=== PATIENT | male | born 1950 | race African-American/Black ===

== ENCOUNTER 2019-07-08 07:58 | Observation (INO) ==
[2019-07-08] MEDS ORDERED: SODIUM CHLORIDE 0.9% 1,000 ML IV STA ×2 (08:40→09:06)
[2019-07-08 08:58] LABS: Alanine Aminotransferase 36 U/L (16-61); Albumin 3.7 G/DL (3.4-5.0); Alkaline Phosphatase 79 U/L (45-117); Aspartate Amino Transferase 43 U/L (0-37); Blood Urea Nitrogen 22 MG/DL (7-18); Calcium 8.3 MG/DL (8.5-10.1); Estimated Glom Filtration Rate 86 ML/MIN; Glucose 96 MG/DL (74-106); Osmolality,Calculated 290.7 MOS/KG (273-304); Total Protein 6.7 G/DL (6.4-8.3)
[2019-07-08 09:16] LABS: INR 0.9; PT Patient Result 10.2 SECS (9.6-12.2); Partial Thromboplastin Time 24.3 SECS (20.8-36.0)
[2019-07-08 09:22] LABS: Basophils % 0.3 % (0.0-0.8); Hematocrit 44.3 VOL% (42.0-52.0); Hemoglobin 14.8 GM/DL (14.0-18.0); Immature Granulocytes % 0.4 %; Immature Granulocytes Absolute 0.03 #; Lymphocytes # 0.3 10*3/uL (1.4-4.0); Lymphocytes % 3.7 % (21.2-54.2); Mean Corpuscular HGB Conc 33.4 GM/DL (32-36); Mean Corpuscular Volume 94.7 FL (87-102); Mean Platelet Volume 10.6 FL (9.6-12.0); Monocytes % 3.5 % (1.7-12.7); Neutrophils % 92.1 % (38.7-73.9); Platelet Count 179 T/CUMM (130-400); Red Blood Count 4.68 MC/CUMM (3.8-5.5); Red Cell Distribution Width 13.3 % (9.3-17.3); White Blood Count 7.5 T/CUMM (4-12)
[2019-07-08 09:34] LABS: Lymphocytes 5 % (20-55); Platelet Estimate Adequate; Segmented Neutrophils 87 % (50-85); Total Cells Counted 100
[2019-07-08] MEDS ORDERED: ALBUTEROL/IPRATROPIUM 3 ML NEB RESP TX PRN (09:34)
[2019-07-08] MEDS ORDERED: MORPHINE 4 MG/1 ML VIAL IV PRN ×2 (09:34)
[2019-07-08] MEDS ORDERED: ONDANSETRON 4 MG/2 ML VIAL IV PRN (09:34)
[2019-07-08] MEDS ORDERED: ACETAMINOPHEN 325 MG TABLET PO PRN (09:34)
[2019-07-08 09:35] LABS: Hypochromasia 1+
[2019-07-08] MEDS ORDERED: PIPERACILLIN/TAZOBACTAM 3,375 MG in SODIUM CHLORIDE 0.9% 100 ML IV STA (09:36)
[2019-07-08] MEDS ORDERED: LACTATED RINGERS 1,000 ML IV SCH (10:00)
[2019-07-08] MEDS: LACTATED RINGERS 1,000 ML IV SCH ×2 (12:17→18:53)
[2019-07-08] MEDS: cefOXitin 2,000 MG in SYRINGE 1 EACH IV SCH ×2 (14:33→17:41)
[2019-07-08] MEDS ORDERED: ALBUTEROL 2.5 MG/3 ML NEB RESP TX PRN (15:00)
[2019-07-08] MEDS: LATANOPROST 0.005% OPH SOLN 2.5 ML BOTTLE BOTH EYES SCH (20:40)
[2019-07-08] MEDS: BRIMONIDINE 0.15% OPH SOLN 1 DROP/DROPS BOTTLE BOTH EYES SCH (20:40)
[2019-07-08] MEDS ORDERED: METOPROLOL TARTRATE 50 MG TABLET PO SCH (21:00)
[2019-07-08 22:59] LABS: Apearance,Urine CLEAR (Clear); Bilirubin,Urine Negative (Negative); Blood, Urine Negative (Negative); Glucose,Urine (UA) Negative (Negative); Hyaline Casts,Urine 1 /LPF (0-3); Ketones,Urine 5 mg/dL (Negative); Mucus,Urine Occasional /LPF (Occasional); Nitrite,Urine Negative (Negative); Protein,Urine Negative; RBC,Urine 3 /HPF (0-4); Squamous Epithelial Cell,Urine Occasional /HPF (0-10); Urine Color Yellow (Yellow); Urine Specific Gravity 1.025 (1.001-1.035); Urine Urobilinogen < 2.0 EU/DL (0.2-1.0); WBC,Urine 9 /HPF (0-6)
[2019-07-09] MEDS: cefOXitin 2,000 MG in SYRINGE 1 EACH IV SCH ×4 (00:25→18:10)
[2019-07-09] MEDS: LACTATED RINGERS 1,000 ML IV SCH ×4 (01:37→10:47)
[2019-07-09 04:58] LABS: Calcium 7.5 MG/DL (8.5-10.1); Osmolality,Calculated 285.7 MOS/KG (273-304)
[2019-07-09 05:04] LABS: Basophils % 0.5 % (0.0-0.8); Eosinophils % 0.6 % (0.00-10.9); Hematocrit 36.6 VOL% (42.0-52.0); Immature Granulocytes % 0.3 %; Immature Granulocytes Absolute 0.02 #; Lymphocytes # 1.1 10*3/uL (1.4-4.0); Mean Corpuscular HGB Conc 33.9 GM/DL (32-36); Mean Corpuscular Volume 92.9 FL (87-102); Mean Platelet Volume 10.9 FL (9.6-12.0); Monocytes % 9.7 % (1.7-12.7); Neutrophils % 70.9 % (38.7-73.9); Red Blood Count 3.94 MC/CUMM (3.8-5.5); Red Cell Distribution Width 13.3 % (9.3-17.3); White Blood Count 6.3 T/CUMM (4-12)
[2019-07-09 05:06] LABS: Hemoglobin 12.4 GM/DL (14.0-18.0); Platelet Count 136 T/CUMM (130-400)
[2019-07-09] MEDS ORDERED: MAGNESIUM SULF RIDER 4 GM in PREMIX 1 EACH IV PRN (06:25)
[2019-07-09] MEDS ORDERED: MAGNESIUM SULF RIDER 50 ML IV ONE (06:32)
[2019-07-09] MEDS: MAGNESIUM SULF RIDER 2 GM in PREMIX 1 EACH IV PRN (06:50)
[2019-07-09] MEDS: POTASSIUM CHLORIDE 20 MEQ TABLET PO PRN ×2 (06:50→08:49)
[2019-07-09] MEDS: ASPIRIN EC 81 MG TABLET PO SCH (08:49)
[2019-07-09] MEDS: DOXAZOSIN 1 MG TABLET PO SCH (08:49)
[2019-07-09] MEDS: LACTULOSE 20 GM/30 ML UDCUP PO SCH (08:49)
[2019-07-09] MEDS: PANTOPRAZOLE 40 MG TABLET PO SCH (08:49)
[2019-07-09] MEDS: BRIMONIDINE 0.15% OPH SOLN 1 DROP/DROPS BOTTLE BOTH EYES SCH ×2 (08:52→22:22)
[2019-07-09] MEDS: LATANOPROST 0.005% OPH SOLN 2.5 ML BOTTLE BOTH EYES SCH (22:22)
[2019-07-10] MEDS: cefOXitin 2,000 MG in SYRINGE 1 EACH IV SCH ×2 (01:46→05:55)
[2019-07-10] MEDS: LACTATED RINGERS 1,000 ML IV SCH ×5 (01:51→21:51)
[2019-07-10 05:53] LABS: Basophils % 0.9 % (0.0-0.8); Eosinophils # 0.2 10*3/uL (0.0-0.87); Eosinophils % 3.7 % (0.00-10.9); Hematocrit 42.2 VOL% (42.0-52.0); Immature Granulocytes % 0.2 %; Immature Granulocytes Absolute 0.01 #; Lymphocytes # 1.2 10*3/uL (1.4-4.0); Lymphocytes % 27.1 % (21.2-54.2); Mean Corpuscular HGB Conc 34.6 GM/DL (32-36); Mean Corpuscular Volume 92.1 FL (87-102); Mean Platelet Volume 10.7 FL (9.6-12.0); Monocytes % 12.8 % (1.7-12.7); Neutrophils % 55.3 % (38.7-73.9); Platelet Count 134 T/CUMM (130-400); Red Blood Count 4.58 MC/CUMM (3.8-5.5); Red Cell Distribution Width 13.1 % (9.3-17.3)
[2019-07-10 06:00] LABS: Osmolality,Calculated 279.1 MOS/KG (273-304)
[2019-07-10 06:13] LABS: Hemoglobin 14.6 GM/DL (14.0-18.0); White Blood Count 4.4 T/CUMM (4-12)
[2019-07-10] MEDS: DOXAZOSIN 1 MG TABLET PO SCH (08:01)
[2019-07-10] MEDS: MAGNESIUM SULF RIDER 2 GM in PREMIX 1 EACH IV PRN (08:01)
[2019-07-10] MEDS: PANTOPRAZOLE 40 MG TABLET PO SCH (08:01)
[2019-07-10] MEDS: BRIMONIDINE 0.15% OPH SOLN 1 DROP/DROPS BOTTLE BOTH EYES SCH ×2 (08:01→21:19)
[2019-07-10] MEDS: LACTULOSE 20 GM/30 ML UDCUP PO SCH (08:01)
[2019-07-10] MEDS: ASPIRIN EC 81 MG TABLET PO SCH (08:01)
[2019-07-10] MEDS: AMOXICILLIN/CLAV 875 MG TABLET PO SCH ×2 (09:40→21:20)
[2019-07-10] MEDS: LATANOPROST 0.005% OPH SOLN 2.5 ML BOTTLE BOTH EYES SCH (21:20)
[2019-07-11] MEDS: LACTATED RINGERS 1,000 ML IV SCH ×3 (05:53→12:23)
[2019-07-11] MEDS: LACTULOSE 20 GM/30 ML UDCUP PO SCH (08:15)
[2019-07-11] MEDS: DOXAZOSIN 1 MG TABLET PO SCH (08:15)
[2019-07-11] MEDS: ASPIRIN EC 81 MG TABLET PO SCH (08:16)
[2019-07-11] MEDS: PANTOPRAZOLE 40 MG TABLET PO SCH (08:16)
[2019-07-11] MEDS: AMOXICILLIN/CLAV 875 MG TABLET PO SCH (08:16)
[2019-07-11] MEDS: BRIMONIDINE 0.15% OPH SOLN 1 DROP/DROPS BOTTLE BOTH EYES SCH (08:19)
[2019-07-11 13:06] VITALS: BP 113/91
== END 2019-07-11 15:00 | disposition home health service (06) ==
LOC: EDBD → EDUNIT# → N.EDINP 07:58 → N.ED 07:58 → N.3E 10:48 → N.CC 12:02 → N.3E 07-09 16:19
PROVIDERS: ADMIT Surgery; ATTEND Surgery

== ENCOUNTER 2019-09-04 18:42 | Observation (INO) ==
[2019-09-04] MEDS ORDERED: LIDOCAINE 1%/EPI INJ 20 ML VIAL ONE (18:59)
[2019-09-04] MEDS ORDERED: TISSUE ADHESIVE 1 EACH APPLICATOR TOP ONE (19:11)
[2019-09-04] MEDS ORDERED: DIPH/TET/ACEL PERT BOOSTER VACCINE 0.5 ML VIAL IM ONE (19:22)
[2019-09-04] MEDS ORDERED: THIAMINE INJ 100 MG, FOLIC ACID INJ 1 MG, MAGNESIUM SULF INJ 2 GM, MULTIVITAMIN INJ 10 ... IV ONE (19:22)
[2019-09-04] MEDS ORDERED: SODIUM CHLORIDE 0.9% 500 ML IV STA (19:22)
[2019-09-04 20:18] LABS: Basophils # 0.1 10*3/uL (0.0-0.2); Basophils % 1.2 % (0.0-0.8); Eosinophils # 0.2 10*3/uL (0.0-0.87); Eosinophils % 3.2 % (0.00-10.9); Hematocrit 44.9 VOL% (42.0-52.0); Hemoglobin 15.5 GM/DL (14.0-18.0); Immature Granulocytes % 0.4 %; Immature Granulocytes Absolute 0.02 #; Lymphocytes # 1.7 10*3/uL (1.4-4.0); Lymphocytes % 34.4 % (21.2-54.2); Mean Corpuscular HGB Conc 34.5 GM/DL (32-36); Mean Corpuscular Volume 91.1 FL (87-102); Mean Platelet Volume 9.7 FL (9.6-12.0); Monocytes % 9.7 % (1.7-12.7); Neutrophils % 51.1 % (38.7-73.9); Platelet Count 176 T/CUMM (130-400); Red Blood Count 4.93 MC/CUMM (3.8-5.5); Red Cell Distribution Width 12.5 % (9.3-17.3)
[2019-09-04 20:30] LABS: INR 0.9; PT Patient Result 10.2 SECS (9.6-12.2)
[2019-09-04 21:29] LABS: Alanine Aminotransferase 36 U/L (16-61); Albumin 3.5 G/DL (3.4-5.0); Alkaline Phosphatase 75 U/L (45-117); Aspartate Amino Transferase 80 U/L (0-37); Blood Urea Nitrogen 6 MG/DL (7-18); Estimated Glom Filtration Rate 117 ML/MIN; Glucose 137 MG/DL (74-106); Osmolality,Calculated 274.7 MOS/KG (273-304); Total Protein 7.5 G/DL (6.4-8.3); Troponin I < 0.015 NG/ML (0.00-0.045)
[2019-09-05] MEDS ORDERED: PROMETHAZINE 25 MG/1 ML VIAL IM PRN (00:31)
[2019-09-05] MEDS ORDERED: NICOTINE 21 MG/24 HR PATCH TRANSDERM PRN (00:31)
[2019-09-05] MEDS ORDERED: ONDANSETRON 4 MG/2 ML VIAL IV PRN (00:31)
[2019-09-05] MEDS ORDERED: LORazepam 2 MG/1 ML VIAL IV PRN ×2 (00:31)
[2019-09-05] MEDS: SODIUM CHLORIDE 0.9% 1,000 ML IV SCH ×2 (03:35→08:57)
[2019-09-05 05:47] LABS: Basophils # 0.1 10*3/uL (0.0-0.2); Basophils % 0.9 % (0.0-0.8); Eosinophils # 0.1 10*3/uL (0.0-0.87); Eosinophils % 1.7 % (0.00-10.9); Hematocrit 42.7 VOL% (42.0-52.0); Hemoglobin 14.5 GM/DL (14.0-18.0); Immature Granulocytes % 0.2 %; Immature Granulocytes Absolute 0.01 #; Lymphocytes % 19.7 % (21.2-54.2); Mean Corpuscular Volume 91.2 FL (87-102); Mean Platelet Volume 10.3 FL (9.6-12.0); Monocytes % 11.6 % (1.7-12.7); Neutrophils % 65.9 % (38.7-73.9); Platelet Count 178 T/CUMM (130-400); Red Blood Count 4.68 MC/CUMM (3.8-5.5); Red Cell Distribution Width 12.5 % (9.3-17.3); White Blood Count 5.3 T/CUMM (4-12)
[2019-09-05 06:19] LABS: Albumin 3.3 G/DL (3.4-5.0); Bilirubin,Total 2.3 MG/DL (0.2-1.0); Calcium 7.9 MG/DL (8.5-10.1); Osmolality,Calculated 282.7 MOS/KG (273-304); Total Protein 6.6 G/DL (6.4-8.3)
[2019-09-05 07:24] VITALS: BP 123/63
[2019-09-05] MEDS ORDERED: FOLIC ACID 1 MG TABLET PO SCH (09:00)
[2019-09-05] MEDS ORDERED: THIAMINE 100 MG TABLET PO SCH (09:00)
[2019-09-05] MEDS ORDERED: MULTIVITAMIN (CENTRUM) TABLET PO SCH (09:00)
== END 2019-09-05 11:47 | disposition home or self-care (01) ==
LOC: N.EDINP 18:42 → N.ED 18:42 → N.5E 23:17
PROVIDERS: ADMIT Internal Medicine; ATTEND Internal Medicine

== ENCOUNTER 2021-12-22 18:24 | Inpatient (IN) ==
[2021-12-22] MEDS ORDERED: THIAMINE INJ 100 MG, FOLIC ACID INJ 1 MG, MAGNESIUM SULF INJ 2 GM, MULTIVITAMIN INJ 10 ... IV ONE (19:13)
[2021-12-22 19:26] LABS: Basophils % 1.1 % (0.0-0.8); Eosinophils % 2.2 % (0.00-10.9); Hematocrit 39.5 VOL% (42.0-52.0); Immature Granulocytes % 0.5 %; Immature Granulocytes Absolute 0.01 #; Lymphocytes % 52.4 % (21.2-54.2); Mean Corpuscular HGB Conc 35.4 GM/DL (32-36); Mean Corpuscular Volume 93.4 FL (87-102); Mean Platelet Volume 10.5 FL (9.6-12.0); Monocytes # 0.3 10*3/uL (0.11-0.8); Monocytes % 16.8 % (1.7-12.7); Platelet Count 122 T/CUMM (130-400); Red Blood Count 4.23 MC/CUMM (3.8-5.5); Red Cell Distribution Width 12.9 % (9.3-17.3); White Blood Count 1.9 T/CUMM (4-12)
[2021-12-22 19:41] LABS: Albumin 3.8 G/DL (3.4-5.0); Bilirubin,Total 0.9 MG/DL (0.20-1.00); Calcium 8.9 MG/DL (8.5-10.1); Osmolality,Calculated 278.3 MOS/KG (273-304); Potassium 3.7 MMOL/L (3.5-5.1); Total Protein 7.3 G/DL (6.4-8.2)
[2021-12-22 19:47] LABS: Eosinophils 1 % (0-10); Lymphocytes 50 % (20-55); Total Cells Counted 100
[2021-12-22 19:48] LABS: Platelet Estimate Decreased
[2021-12-22 20:00] LABS: INR 0.9; PT Patient Result 10.1 SECS (10.5-12.0)
[2021-12-22] MEDS ORDERED: ACETAMINOPHEN 325 MG TABLET PO PRN (21:39)
[2021-12-22] MEDS ORDERED: DEXTROSE 10% 250 ML BAG IV PRN (21:39)
[2021-12-22] MEDS ORDERED: ONDANSETRON 4 MG/2 ML VIAL IV PRN (21:39)
[2021-12-22] MEDS ORDERED: GLUCAGON 1 MG VIAL IM PRN (21:39)
[2021-12-22] MEDS ORDERED: ALUMINUM/MAGNES/SIMETH MAX STR 30 ML UDCUP PO PRN (21:39)
[2021-12-22] MEDS ORDERED: LACTATED RINGERS 1,000 ML IV SCH (22:00)
[2021-12-22] MEDS: ENOXAPARIN 40 MG/0.4 ML SYRINGE SUBCUT SCH (22:02)
[2021-12-22 22:14] LABS: Hyaline Casts,Urine 3 /LPF (0-3); Mucus,Urine Occasional /LPF (Occasional)
[2021-12-22 22:15] LABS: Bilirubin,Urine Negative (Negative); Blood, Urine Negative (Negative); Glucose,Urine (UA) Negative (Negative); Ketones,Urine Negative (Negative); Nitrite,Urine Negative (Negative); Protein,Urine Negative (Negative); Urine Appearance Clear (Clear); Urine Color Yellow (Yellow); Urine Urobilinogen 0.2 eU/dL (<2.0); Urine pH 5.5 (4.5-8.0)
[2021-12-22 22:27] LABS: Barbiturates Screen,Urine Negative (Negative); Benzodiazepines Screen,Urine Negative (Negative); Cannabinoid Screen,Urine Negative (Negative); Opiate Screen,Urine Negative (Negative); Phencyclidine Screen,Urine Negative (Negative)
[2021-12-23] MEDS: ALBUTEROL 2.5 MG/3 ML NEB RESP TX SCH ×5 (00:17→23:58)
[2021-12-23] MEDS: LORazepam 1 MG TABLET PO SCH ×5 (00:32→16:41)
[2021-12-23 05:29] LABS: Eosinophils % 1.4 % (0.00-10.9); Hematocrit 35.8 VOL% (42.0-52.0); Hemoglobin 12.3 GM/DL (14.0-18.0); Immature Granulocytes % 0.5 %; Immature Granulocytes Absolute 0.01 #; Lymphocytes # 0.8 10*3/uL (1.4-4.0); Lymphocytes % 39.2 % (21.2-54.2); Mean Corpuscular HGB Conc 34.4 GM/DL (32-36); Mean Corpuscular Volume 94.2 FL (87-102); Mean Platelet Volume 10.2 FL (9.6-12.0); Monocytes # 0.4 10*3/uL (0.11-0.8); Monocytes % 19.1 % (1.7-12.7); Neutrophils % 38.8 % (38.7-73.9); Platelet Count 105 T/CUMM (130-400); Red Cell Distribution Width 12.8 % (9.3-17.3); White Blood Count 2.1 T/CUMM (4-12)
[2021-12-23 05:37] LABS: PT Patient Result 10.7 SECS (10.5-12.0); Partial Thromboplastin Time 31.4 SECS (23.8-32.1)
[2021-12-23 05:48] LABS: Albumin 3.3 G/DL (3.4-5.0); Bilirubin,Total 0.9 MG/DL (0.20-1.00); Calcium 8.6 MG/DL (8.5-10.1); Osmolality,Calculated 276.3 MOS/KG (273-304); Potassium 3.3 MMOL/L (3.5-5.1); Total Protein 6.2 G/DL (6.4-8.2)
[2021-12-23 06:02] LABS: Atypical Lymphocytes Few; Band Neutrophils 2 % (0-10); Eosinophils 3 % (0-10); Lymphocytes 42 % (20-55); Total Cells Counted 100
[2021-12-23 06:03] LABS: Microcytosis Slight
[2021-12-23 06:04] LABS: Platelet Estimate Decreased
[2021-12-23 06:29] LABS: HIV Antigen/Antibody Result Nonreactive (Nonreactive)
[2021-12-23] MEDS ORDERED: DEXTROSE 5% LACTATED RINGERS 1,000 ML IV SCH (07:00)
[2021-12-23] MEDS ORDERED: DEXTROSE 50% 25 GM/50 ML VIAL IV PRN (07:01)
[2021-12-23] MEDS ORDERED: MAGNESIUM SULF RIDER 2 GM/50 ML PREMIX IV PRN (07:02)
[2021-12-23] MEDS ORDERED: MAGNESIUM SULF RIDER 4 GM/100 ML PREMIX IV PRN (07:02)
[2021-12-23] MEDS ORDERED: THIAMINE INJ 100 MG, FOLIC ACID INJ 1 MG, MULTIVITAMIN INJ 10 ML in DEXTROSE 5% NACL 0.... IV SCH (07:30)
[2021-12-23] MEDS: THIAMINE 100 MG TABLET PO SCH (08:25)
[2021-12-23] MEDS: ASPIRIN EC 81 MG TABLET PO SCH (08:25)
[2021-12-23] MEDS: FOLIC ACID 1 MG TABLET PO SCH (08:25)
[2021-12-23] MEDS: MULTIVITAMIN (CENTRUM) TABLET PO SCH (08:26)
[2021-12-23] MEDS: PANTOPRAZOLE 40 MG TABLET PO SCH (08:26)
[2021-12-23] MEDS: NICOTINE 21 MG/24 HR PATCH TRANSDERM SCH (08:27)
[2021-12-23] MEDS ORDERED: LACTULOSE 20 GM/30 ML UDCUP PO SCH (09:00)
[2021-12-23] MEDS ORDERED: SODIUM PHOSPHATE ENEMA 133 ML BOTTLE RECTAL PRN (09:50)
[2021-12-23] MEDS ORDERED: POLYETHYLENE GLYCOL POWDER 17 GM PACK PO SCH (10:00)
[2021-12-23 10:03] LABS: Basophils % 0.9 % (0.0-0.8); Eosinophils % 1.8 % (0.00-10.9); Hematocrit 36.4 VOL% (42.0-52.0); Hemoglobin 12.8 GM/DL (14.0-18.0); Immature Granulocytes % 0.4 %; Immature Granulocytes Absolute 0.01 #; Lymphocytes # 0.7 10*3/uL (1.4-4.0); Lymphocytes % 29.4 % (21.2-54.2); Mean Corpuscular HGB Conc 35.2 GM/DL (32-36); Mean Corpuscular Volume 93.8 FL (87-102); Mean Platelet Volume 9.9 FL (9.6-12.0); Monocytes # 0.5 10*3/uL (0.11-0.8); Monocytes % 23.2 % (1.7-12.7); Neutrophils % 44.3 % (38.7-73.9); Platelet Count 108 T/CUMM (130-400); Red Blood Count 3.88 MC/CUMM (3.8-5.5); Red Cell Distribution Width 12.9 % (9.3-17.3); White Blood Count 2.3 T/CUMM (4-12)
[2021-12-23 10:27] LABS: PT Patient Result 10.6 SECS (10.5-12.0); Partial Thromboplastin Time 28.2 SECS (23.8-32.1)
[2021-12-23 10:30] LABS: Atypical Lymphocytes Few; Band Neutrophils 1 % (0-10); Eosinophils 3 % (0-10); Lymphocytes 32 % (20-55); Microcytosis Slight; Total Cells Counted 100
[2021-12-23 10:32] LABS: Platelet Estimate Decreased
[2021-12-23 11:17] LABS: Hepatitis B Core IgM Quant < 0.05 Index; Hepatitis B Surface Ag Quant < 0.10 Index; Hepatitis B Surface Ag Result Non-Reactive (NonReactive); Hepatitis C Virus Ab Quant 0.06 Index; Hepatitis C Virus Ab Result Non-Reactive (NonReactive)
[2021-12-23] MEDS: POTASSIUM CHLORIDE 20 MEQ TABLET PO PRN ×3 (11:25→16:41)
[2021-12-23] MEDS: DOCUSATE SODIUM 100 MG CAPSULE PO SCH ×2 (11:25→21:14)
[2021-12-23] MEDS: DOXAZOSIN 1 MG TABLET PO SCH (11:26)
[2021-12-23] MEDS: MEGESTROL 40 MG TABLET PO SCH ×2 (11:26→21:14)
[2021-12-23] MEDS: BRIMONIDINE 0.15% OPH SOLN 1 DROP/DROPS BOTTLE BOTH EYES SCH ×3 (12:40→21:13)
[2021-12-23] MEDS ORDERED: OLANZapine 10 MG VIAL IM ONE (20:06)
[2021-12-23] MEDS: chlordiazePOXIDE 25 MG CAPSULE PO SCH (21:14)
[2021-12-23] MEDS: ENOXAPARIN 40 MG/0.4 ML SYRINGE SUBCUT SCH (21:14)
[2021-12-23] MEDS: DONEPEZIL 10 MG TABLET PO SCH (21:14)
[2021-12-23] MEDS: ATORVASTATIN 40 MG TABLET PO SCH (21:14)
[2021-12-24] MEDS ORDERED: LORazepam 2 MG/1 ML VIAL IV ONE ×2 (00:01→01:00)
[2021-12-24] MEDS ORDERED: LORazepam 2 MG/1 ML VIAL IV PRN (00:38)
[2021-12-24] MEDS: chlordiazePOXIDE 25 MG CAPSULE PO SCH (04:45)
[2021-12-24 05:59] LABS: Basophils % 0.3 % (0.0-0.8); Eosinophils % 0.8 % (0.00-10.9); Hematocrit 39.7 VOL% (42.0-52.0); Hemoglobin 13.8 GM/DL (14.0-18.0); Immature Granulocytes % 0.3 %; Immature Granulocytes Absolute 0.01 #; Lymphocytes # 0.8 10*3/uL (1.4-4.0); Lymphocytes % 21.1 % (21.2-54.2); Mean Corpuscular HGB Conc 34.8 GM/DL (32-36); Mean Corpuscular Volume 94.3 FL (87-102); Mean Platelet Volume 10.7 FL (9.6-12.0); Monocytes # 0.8 10*3/uL (0.11-0.8); Monocytes % 20.8 % (1.7-12.7); Neutrophils % 56.7 % (38.7-73.9); Platelet Count 118 T/CUMM (130-400); Red Blood Count 4.21 MC/CUMM (3.8-5.5); Red Cell Distribution Width 12.7 % (9.3-17.3); White Blood Count 3.7 T/CUMM (4-12)
[2021-12-24 06:03] LABS: Albumin 3.8 G/DL (3.4-5.0); Bilirubin,Total 1.7 MG/DL (0.20-1.00); Calcium 9.5 MG/DL (8.5-10.1); Osmolality,Calculated 271.8 MOS/KG (273-304); Potassium 3.7 MMOL/L (3.5-5.1); Total Protein 7.4 G/DL (6.4-8.2)
[2021-12-24 06:22] LABS: Lymphocytes 41 % (20-55); Total Cells Counted 100
[2021-12-24 06:23] LABS: Platelet Estimate Adequate
[2021-12-24] MEDS ORDERED: ACETAMINOPHEN 500 MG TABLET PO PRN (06:56)
[2021-12-24] MEDS: ALBUTEROL 2.5 MG/3 ML NEB RESP TX SCH ×3 (07:36→19:30)
[2021-12-24] MEDS: LACTULOSE 20 GM/30 ML UDCUP PO SCH (10:07)
[2021-12-24] MEDS: POLYETHYLENE GLYCOL POWDER 17 GM PACK PO SCH ×2 (10:07→23:54)
[2021-12-24] MEDS: MEGESTROL 40 MG TABLET PO SCH (10:07)
[2021-12-24] MEDS: MULTIVITAMIN (CENTRUM) TABLET PO SCH (10:07)
[2021-12-24] MEDS: DOXAZOSIN 1 MG TABLET PO SCH (10:07)
[2021-12-24] MEDS: THIAMINE 100 MG TABLET PO SCH (10:08)
[2021-12-24] MEDS: PANTOPRAZOLE 40 MG TABLET PO SCH (10:08)
[2021-12-24] MEDS: FOLIC ACID 1 MG TABLET PO SCH (10:08)
[2021-12-24] MEDS: BRIMONIDINE 0.15% OPH SOLN 1 DROP/DROPS BOTTLE BOTH EYES SCH ×2 (10:08→23:54)
[2021-12-24] MEDS: ASPIRIN EC 81 MG TABLET PO SCH (10:08)
[2021-12-24] MEDS: DOCUSATE SODIUM 100 MG CAPSULE PO SCH ×2 (10:08→23:54)
[2021-12-24] MEDS: NICOTINE 21 MG/24 HR PATCH TRANSDERM SCH (10:09)
[2021-12-24] MEDS: DONEPEZIL 10 MG TABLET PO SCH (23:54)
[2021-12-24] MEDS: ATORVASTATIN 40 MG TABLET PO SCH (23:54)
[2021-12-24] MEDS: ENOXAPARIN 40 MG/0.4 ML SYRINGE SUBCUT SCH (23:55)
[2021-12-25] MEDS: ALBUTEROL 2.5 MG/3 ML NEB RESP TX SCH ×4 (00:04→19:20)
[2021-12-25 06:05] LABS: Albumin 3.6 G/DL (3.4-5.0); Bilirubin,Total 1.7 MG/DL (0.20-1.00); Calcium 9.8 MG/DL (8.5-10.1); Osmolality,Calculated 272.8 MOS/KG (273-304); Potassium 3.4 MMOL/L (3.5-5.1); Total Protein 7.1 G/DL (6.4-8.2)
[2021-12-25] MEDS: FOLIC ACID 1 MG TABLET PO SCH (08:35)
[2021-12-25] MEDS: POLYETHYLENE GLYCOL POWDER 17 GM PACK PO SCH ×2 (08:35→21:12)
[2021-12-25] MEDS: MULTIVITAMIN (CENTRUM) TABLET PO SCH (08:36)
[2021-12-25] MEDS: DOXAZOSIN 1 MG TABLET PO SCH (08:36)
[2021-12-25] MEDS: BRIMONIDINE 0.15% OPH SOLN 1 DROP/DROPS BOTTLE BOTH EYES SCH ×2 (08:36→21:12)
[2021-12-25] MEDS: THIAMINE 100 MG TABLET PO SCH (08:36)
[2021-12-25] MEDS: POTASSIUM CHLORIDE 20 MEQ TABLET PO PRN ×2 (08:36→12:12)
[2021-12-25] MEDS: LACTULOSE 20 GM/30 ML UDCUP PO SCH (08:36)
[2021-12-25] MEDS: PANTOPRAZOLE 40 MG TABLET PO SCH (08:36)
[2021-12-25] MEDS: ASPIRIN EC 81 MG TABLET PO SCH (08:36)
[2021-12-25] MEDS: NICOTINE 21 MG/24 HR PATCH TRANSDERM SCH (08:36)
[2021-12-25] MEDS: DOCUSATE SODIUM 100 MG CAPSULE PO SCH ×2 (08:50→21:11)
[2021-12-25] MEDS ORDERED: OXAZEPAM 10 MG CAPSULE PO PRN (11:25)
[2021-12-25] MEDS ORDERED: OXAZEPAM 10 MG CAPSULE PO SCH (15:00)
[2021-12-25] MEDS: OXAZEPAM 10 MG CAPSULE PO SCH ×2 (16:19→21:11)
[2021-12-25] MEDS ORDERED: QUEtiapine 25 MG TABLET PO SCH (21:00)
[2021-12-25] MEDS: ATORVASTATIN 40 MG TABLET PO SCH (21:11)
[2021-12-25] MEDS: ENOXAPARIN 40 MG/0.4 ML SYRINGE SUBCUT SCH (21:11)
[2021-12-25] MEDS: DONEPEZIL 10 MG TABLET PO SCH (21:11)
[2021-12-26] MEDS: ALBUTEROL 2.5 MG/3 ML NEB RESP TX SCH ×4 (00:20→19:02)
[2021-12-26 06:24] LABS: Albumin 3.2 G/DL (3.4-5.0); Bilirubin,Total 1.5 MG/DL (0.20-1.00); Calcium 9.9 MG/DL (8.5-10.1); Osmolality,Calculated 279.4 MOS/KG (273-304); Potassium 4.2 MMOL/L (3.5-5.1); Total Protein 6.9 G/DL (6.4-8.2)
[2021-12-26] MEDS: DOCUSATE SODIUM 100 MG CAPSULE PO SCH ×2 (10:01→20:54)
[2021-12-26] MEDS: LACTULOSE 20 GM/30 ML UDCUP PO SCH (10:01)
[2021-12-26] MEDS: PANTOPRAZOLE 40 MG TABLET PO SCH (10:02)
[2021-12-26] MEDS: DOXAZOSIN 1 MG TABLET PO SCH (10:02)
[2021-12-26] MEDS: MULTIVITAMIN (CENTRUM) TABLET PO SCH (10:02)
[2021-12-26] MEDS: ASPIRIN EC 81 MG TABLET PO SCH (10:02)
[2021-12-26] MEDS: FOLIC ACID 1 MG TABLET PO SCH (10:03)
[2021-12-26] MEDS: OXAZEPAM 10 MG CAPSULE PO SCH (10:03)
[2021-12-26] MEDS: POLYETHYLENE GLYCOL POWDER 17 GM PACK PO SCH ×2 (10:03→20:56)
[2021-12-26] MEDS: NICOTINE 21 MG/24 HR PATCH TRANSDERM SCH (10:03)
[2021-12-26] MEDS: THIAMINE 100 MG TABLET PO SCH (10:03)
[2021-12-26] MEDS: BRIMONIDINE 0.15% OPH SOLN 1 DROP/DROPS BOTTLE BOTH EYES SCH ×2 (10:04→20:55)
[2021-12-26] MEDS: QUEtiapine 25 MG TABLET PO SCH (16:57)
[2021-12-26] MEDS: ATORVASTATIN 40 MG TABLET PO SCH (20:54)
[2021-12-26] MEDS: DONEPEZIL 10 MG TABLET PO SCH (20:54)
[2021-12-26] MEDS ORDERED: QUEtiapine 25 MG TABLET PO SCH (21:00)
[2021-12-26] MEDS: ENOXAPARIN 40 MG/0.4 ML SYRINGE SUBCUT SCH (21:04)
[2021-12-27] MEDS: ALBUTEROL 2.5 MG/3 ML NEB RESP TX SCH ×4 (00:11→19:20)
[2021-12-27 05:16] LABS: Basophils % 0.3 % (0.0-0.8); Eosinophils % 0.5 % (0.00-10.9); Hematocrit 39.1 VOL% (42.0-52.0); Hemoglobin 13.2 GM/DL (14.0-18.0); Immature Granulocytes % 0.4 %; Immature Granulocytes Absolute 0.03 #; Lymphocytes # 0.9 10*3/uL (1.4-4.0); Mean Corpuscular HGB Conc 33.8 GM/DL (32-36); Mean Corpuscular Volume 96.8 FL (87-102); Mean Platelet Volume 10.7 FL (9.6-12.0); Monocytes # 0.9 10*3/uL (0.11-0.8); Monocytes % 11.7 % (1.7-12.7); Neutrophils % 75.1 % (38.7-73.9); Platelet Count 144 T/CUMM (130-400); Red Blood Count 4.04 MC/CUMM (3.8-5.5); Red Cell Distribution Width 12.8 % (9.3-17.3); White Blood Count 7.8 T/CUMM (4-12)
[2021-12-27 05:43] LABS: Albumin 3.1 G/DL (3.4-5.0); Bilirubin,Total 1.2 MG/DL (0.20-1.00); Calcium 10.2 MG/DL (8.5-10.1); Osmolality,Calculated 274.8 MOS/KG (273-304); Potassium 4.4 MMOL/L (3.5-5.1); Total Protein 7.1 G/DL (6.4-8.2)
[2021-12-27] MEDS: NICOTINE 21 MG/24 HR PATCH TRANSDERM SCH (10:22)
[2021-12-27] MEDS: THIAMINE 100 MG TABLET PO SCH (10:23)
[2021-12-27] MEDS: FOLIC ACID 1 MG TABLET PO SCH (10:23)
[2021-12-27] MEDS: POLYETHYLENE GLYCOL POWDER 17 GM PACK PO SCH ×2 (10:23→21:23)
[2021-12-27] MEDS: LACTULOSE 20 GM/30 ML UDCUP PO SCH (10:23)
[2021-12-27] MEDS: MULTIVITAMIN (CENTRUM) TABLET PO SCH (10:23)
[2021-12-27] MEDS: ASPIRIN EC 81 MG TABLET PO SCH (10:23)
[2021-12-27] MEDS: DOCUSATE SODIUM 100 MG CAPSULE PO SCH ×2 (10:23→21:23)
[2021-12-27] MEDS: DOXAZOSIN 1 MG TABLET PO SCH (10:23)
[2021-12-27] MEDS: BRIMONIDINE 0.15% OPH SOLN 1 DROP/DROPS BOTTLE BOTH EYES SCH ×2 (10:24→21:23)
[2021-12-27] MEDS: PANTOPRAZOLE 40 MG TABLET PO SCH (12:04)
[2021-12-27] MEDS: QUEtiapine 25 MG TABLET PO SCH (17:19)
[2021-12-27] MEDS: ENOXAPARIN 40 MG/0.4 ML SYRINGE SUBCUT SCH (21:22)
[2021-12-27] MEDS: MIRTAZAPINE 15 MG TABLET PO SCH (21:23)
[2021-12-27] MEDS: DONEPEZIL 10 MG TABLET PO SCH (21:23)
[2021-12-27] MEDS: ATORVASTATIN 40 MG TABLET PO SCH (21:23)
[2021-12-27] MEDS: LORazepam 2 MG/1 ML VIAL IV PRN (23:19)
[2021-12-28] MEDS: ALBUTEROL 2.5 MG/3 ML NEB RESP TX SCH ×4 (00:07→19:17)
[2021-12-28 05:51] LABS: Basophils % 0.3 % (0.0-0.8); Eosinophils # 0.1 10*3/uL (0.0-0.87); Hematocrit 34.6 VOL% (42.0-52.0); Hemoglobin 11.9 GM/DL (14.0-18.0); Immature Granulocytes % 0.5 %; Immature Granulocytes Absolute 0.03 #; Lymphocytes # 0.7 10*3/uL (1.4-4.0); Lymphocytes % 12.6 % (21.2-54.2); Mean Corpuscular HGB Conc 34.4 GM/DL (32-36); Mean Corpuscular Volume 97.2 FL (87-102); Mean Platelet Volume 10.8 FL (9.6-12.0); Monocytes # 1.1 10*3/uL (0.11-0.8); Monocytes % 18.7 % (1.7-12.7); Neutrophils % 66.9 % (38.7-73.9); Platelet Count 156 T/CUMM (130-400); Red Blood Count 3.56 MC/CUMM (3.8-5.5); Red Cell Distribution Width 12.7 % (9.3-17.3); White Blood Count 5.9 T/CUMM (4-12)
[2021-12-28 06:10] LABS: Calcium 9.9 MG/DL (8.5-10.1)
[2021-12-28 06:19] LABS: Eosinophils 1 % (0-10); Lymphocytes 11 % (20-55); Platelet Estimate Adequate; Total Cells Counted 100
[2021-12-28] MEDS: BRIMONIDINE 0.15% OPH SOLN 1 DROP/DROPS BOTTLE BOTH EYES SCH ×3 (08:27→21:44)
[2021-12-28] MEDS: DOCUSATE SODIUM 100 MG CAPSULE PO SCH ×3 (08:28→21:44)
[2021-12-28] MEDS: LACTULOSE 20 GM/30 ML UDCUP PO SCH (08:28)
[2021-12-28] MEDS: ASPIRIN EC 81 MG TABLET PO SCH (08:28)
[2021-12-28] MEDS: THIAMINE 100 MG TABLET PO SCH (08:28)
[2021-12-28] MEDS: MULTIVITAMIN (CENTRUM) TABLET PO SCH (08:28)
[2021-12-28] MEDS: DOXAZOSIN 1 MG TABLET PO SCH (08:28)
[2021-12-28] MEDS: POLYETHYLENE GLYCOL POWDER 17 GM PACK PO SCH ×3 (08:28→21:44)
[2021-12-28] MEDS: FOLIC ACID 1 MG TABLET PO SCH (08:28)
[2021-12-28] MEDS: PANTOPRAZOLE 40 MG TABLET PO SCH (08:28)
[2021-12-28] MEDS: NICOTINE 21 MG/24 HR PATCH TRANSDERM SCH (08:29)
[2021-12-28] MEDS ORDERED: TUBERCULIN SKIN TEST 0.1 ML SYRINGE INTRADERM ONE (16:00)
[2021-12-28] MEDS: QUEtiapine 25 MG TABLET PO SCH (16:12)
[2021-12-28] MEDS: ATORVASTATIN 40 MG TABLET PO SCH ×2 (21:43→21:44)
[2021-12-28] MEDS: DONEPEZIL 10 MG TABLET PO SCH ×2 (21:43→21:44)
[2021-12-28] MEDS: ENOXAPARIN 40 MG/0.4 ML SYRINGE SUBCUT SCH ×2 (21:44)
[2021-12-28] MEDS: MIRTAZAPINE 15 MG TABLET PO SCH ×2 (21:44)
[2021-12-28] MEDS: LORazepam 2 MG/1 ML VIAL IV PRN (21:56)
[2021-12-29] MEDS: ALBUTEROL 2.5 MG/3 ML NEB RESP TX SCH ×4 (00:15→20:20)
[2021-12-29 05:14] LABS: Basophils % 0.3 % (0.0-0.8); Eosinophils # 0.1 10*3/uL (0.0-0.87); Hematocrit 33.6 VOL% (42.0-52.0); Hemoglobin 11.6 GM/DL (14.0-18.0); Immature Granulocytes % 0.5 %; Immature Granulocytes Absolute 0.03 #; Lymphocytes # 0.8 10*3/uL (1.4-4.0); Lymphocytes % 13.5 % (21.2-54.2); Mean Corpuscular HGB Conc 34.5 GM/DL (32-36); Mean Corpuscular Volume 96.6 FL (87-102); Mean Platelet Volume 10.5 FL (9.6-12.0); Monocytes # 1.4 10*3/uL (0.11-0.8); Monocytes % 23.3 % (1.7-12.7); Neutrophils % 61.4 % (38.7-73.9); Platelet Count 205 T/CUMM (130-400); Red Blood Count 3.48 MC/CUMM (3.8-5.5); Red Cell Distribution Width 12.7 % (9.3-17.3); White Blood Count 5.8 T/CUMM (4-12)
[2021-12-29 05:33] LABS: Calcium 9.8 MG/DL (8.5-10.1); Osmolality,Calculated 275.8 MOS/KG (273-304); Potassium 3.6 MMOL/L (3.5-5.1)
[2021-12-29 05:39] LABS: Eosinophils 1 % (0-10); Lymphocytes 22 % (20-55); Platelet Estimate Normal; Total Cells Counted 100
[2021-12-29] MEDS: LACTULOSE 20 GM/30 ML UDCUP PO SCH (09:19)
[2021-12-29] MEDS: PANTOPRAZOLE 40 MG TABLET PO SCH (09:19)
[2021-12-29] MEDS: DOCUSATE SODIUM 100 MG CAPSULE PO SCH ×2 (09:19→22:01)
[2021-12-29] MEDS: POLYETHYLENE GLYCOL POWDER 17 GM PACK PO SCH ×2 (09:19→23:23)
[2021-12-29] MEDS: NICOTINE 21 MG/24 HR PATCH TRANSDERM SCH (09:19)
[2021-12-29] MEDS: DOXAZOSIN 1 MG TABLET PO SCH (09:20)
[2021-12-29] MEDS: THIAMINE 100 MG TABLET PO SCH (09:20)
[2021-12-29] MEDS: ASPIRIN EC 81 MG TABLET PO SCH (09:20)
[2021-12-29] MEDS: MULTIVITAMIN (CENTRUM) TABLET PO SCH (09:20)
[2021-12-29] MEDS: FOLIC ACID 1 MG TABLET PO SCH (09:20)
[2021-12-29] MEDS: BRIMONIDINE 0.15% OPH SOLN 1 DROP/DROPS BOTTLE BOTH EYES SCH ×2 (09:20→22:01)
[2021-12-29] MEDS: QUEtiapine 25 MG TABLET PO SCH (16:15)
[2021-12-29] MEDS: DONEPEZIL 10 MG TABLET PO SCH (22:01)
[2021-12-29] MEDS: MIRTAZAPINE 15 MG TABLET PO SCH (22:01)
[2021-12-29] MEDS: ATORVASTATIN 40 MG TABLET PO SCH (22:01)
[2021-12-29] MEDS: ENOXAPARIN 40 MG/0.4 ML SYRINGE SUBCUT SCH (22:02)
[2021-12-30] MEDS: ALBUTEROL 2.5 MG/3 ML NEB RESP TX SCH ×2 (01:16→07:30)
[2021-12-30 06:29] LABS: Basophils % 0.6 % (0.0-0.8); Eosinophils # 0.1 10*3/uL (0.0-0.87); Eosinophils % 2.3 % (0.00-10.9); Hematocrit 33.6 VOL% (42.0-52.0); Hemoglobin 11.4 GM/DL (14.0-18.0); Immature Granulocytes % 0.6 %; Immature Granulocytes Absolute 0.03 #; Lymphocytes # 0.8 10*3/uL (1.4-4.0); Mean Corpuscular HGB Conc 33.9 GM/DL (32-36); Mean Corpuscular Volume 96.8 FL (87-102); Mean Platelet Volume 10.7 FL (9.6-12.0); Monocytes % 20.4 % (1.7-12.7); Neutrophils % 59.1 % (38.7-73.9); Platelet Count 260 T/CUMM (130-400); Red Blood Count 3.47 MC/CUMM (3.8-5.5); Red Cell Distribution Width 12.6 % (9.3-17.3); White Blood Count 4.7 T/CUMM (4-12)
[2021-12-30 06:50] LABS: Eosinophils 2 % (0-10); Lymphocytes 17 % (20-55); Platelet Estimate Adequate; Total Cells Counted 100
[2021-12-30 06:56] LABS: Calcium 9.9 MG/DL (8.5-10.1); Osmolality,Calculated 279.5 MOS/KG (273-304); Potassium 3.7 MMOL/L (3.5-5.1)
[2021-12-30] MEDS: DOCUSATE SODIUM 100 MG CAPSULE PO SCH (10:26)
[2021-12-30] MEDS: FOLIC ACID 1 MG TABLET PO SCH (10:26)
[2021-12-30] MEDS: MULTIVITAMIN (CENTRUM) TABLET PO SCH (10:26)
[2021-12-30] MEDS: THIAMINE 100 MG TABLET PO SCH (10:27)
[2021-12-30] MEDS: DOXAZOSIN 1 MG TABLET PO SCH (10:27)
[2021-12-30] MEDS: ASPIRIN EC 81 MG TABLET PO SCH (10:27)
[2021-12-30] MEDS: PANTOPRAZOLE 40 MG TABLET PO SCH (10:27)
[2021-12-30] MEDS: NICOTINE 21 MG/24 HR PATCH TRANSDERM SCH (10:27)
[2021-12-30] MEDS: POLYETHYLENE GLYCOL POWDER 17 GM PACK PO SCH (10:28)
[2021-12-30] MEDS: BRIMONIDINE 0.15% OPH SOLN 1 DROP/DROPS BOTTLE BOTH EYES SCH (10:43)
[2021-12-30] MEDS: LACTULOSE 20 GM/30 ML UDCUP PO SCH (11:38)
[2021-12-30 12:06] VITALS: BP 106/61
== END 2021-12-30 13:30 | disposition home health service (06) | DRG 433 ==
LOC: EDBD → EDUNIT# → N.EDINP 18:24 → N.ED 18:24 → N.3E 22:25 → SUATTDRO 12-23 09:35
PROVIDERS: ADMIT Internal Medicine; ATTEND Internal Medicine

== ENCOUNTER 2022-06-02 01:54 | Observation (INO) ==
[2022-06-02] MEDS ORDERED: THIAMINE INJ 100 MG, FOLIC ACID INJ 1 MG, MAGNESIUM SULF INJ 2 GM, MULTIVITAMIN INJ 10 ... IV STA (02:06)
[2022-06-02] MEDS ORDERED: THIAMINE INJ 100 MG, FOLIC ACID INJ 1 MG, MAGNESIUM SULF INJ 2 GM in SODIUM CHLORIDE 0.... IV STA (02:25)
[2022-06-02 02:37] LABS: Basophils % 0.3 % (0.0-0.8); Eosinophils # 0.1 10*3/uL (0.0-0.87); Eosinophils % 1.4 % (0.00-10.9); Hematocrit 41.1 VOL% (42.0-52.0); Hemoglobin 13.8 GM/DL (14.0-18.0); Immature Granulocytes % 0.5 %; Immature Granulocytes Absolute 0.03 #; Lymphocytes # 1.1 10*3/uL (1.4-4.0); Lymphocytes % 17.4 % (21.2-54.2); Mean Corpuscular HGB Conc 33.6 GM/DL (32-36); Mean Corpuscular Volume 89.3 FL (87-102); Monocytes # 0.5 10*3/uL (0.11-0.8); Monocytes % 7.7 % (1.7-12.7); Neutrophils % 72.7 % (38.7-73.9); Platelet Count 177 T/CUMM (130-400); Red Cell Distribution Width 13.7 % (9.3-17.3); White Blood Count 6.3 T/CUMM (4-12)
[2022-06-02] MEDS ORDERED: MULTIVITAMIN (CENTRUM) TABLET PO ONE (02:45)
[2022-06-02 03:07] LABS: Albumin 3.7 G/DL (3.4-5.0); Bilirubin,Total 1.6 MG/DL (0.20-1.00); Calcium 8.9 MG/DL (8.5-10.1); Osmolality,Calculated 283.8 MOS/KG (273-304); Potassium 3.5 MMOL/L (3.5-5.1); Total Protein 6.4 G/DL (6.4-8.2)
[2022-06-02] MEDS ORDERED: DEXTROSE 10% 250 ML IV ONE (03:17)
[2022-06-02] MEDS ORDERED: DEXTROSE 10% 1,000 ML IV SCH (04:00)
[2022-06-02] MEDS: DEXTROSE 10% 250 ML IV SCH ×4 (04:03→23:30)
[2022-06-02] MEDS ORDERED: ALBUTEROL/IPRATROPIUM 3 ML NEB RESP TX PRN (05:51)
[2022-06-02] MEDS ORDERED: ACETAMINOPHEN 325 MG TABLET PO PRN (05:51)
[2022-06-02] MEDS ORDERED: NICOTINE 21 MG/24 HR PATCH TRANSDERM PRN (05:51)
[2022-06-02] MEDS ORDERED: GLUCAGON 1 MG VIAL IM PRN (05:51)
[2022-06-02] MEDS ORDERED: hydrALAZINE 20 MG/1 ML VIAL IV PRN (05:51)
[2022-06-02] MEDS ORDERED: ONDANSETRON 4 MG/2 ML VIAL IV PRN (05:51)
[2022-06-02] MEDS ORDERED: LORazepam 2 MG/1 ML VIAL IV PRN (05:56)
[2022-06-02] MEDS ORDERED: MAGNESIUM SULF RIDER 2 GM/50 ML PREMIX IV ONE (06:30)
[2022-06-02] MEDS: PANTOPRAZOLE 40 MG TABLET PO SCH (09:54)
[2022-06-02] MEDS: THIAMINE 100 MG TABLET PO SCH ×2 (09:54→22:45)
[2022-06-02] MEDS: MULTIVITAMIN (CENTRUM) TABLET PO SCH (09:54)
[2022-06-02] MEDS: FOLIC ACID 1 MG TABLET PO SCH (09:54)
[2022-06-02] MEDS: ENOXAPARIN 40 MG/0.4 ML SYRINGE SUBCUT SCH (22:45)
[2022-06-02] MEDS: DEXTROSE 10% 250 ML BAG IV PRN (23:22)
[2022-06-03] MEDS: DEXTROSE 10% 250 ML IV SCH ×5 (01:34→20:30)
[2022-06-03] MEDS: DEXTROSE 10% 250 ML BAG IV PRN (05:22)
[2022-06-03 05:36] LABS: Calcium 8.2 MG/DL (8.5-10.1); Osmolality,Calculated 280.3 MOS/KG (273-304); Potassium 3.4 MMOL/L (3.5-5.1)
[2022-06-03] MEDS: BRIMONIDINE 0.1% OPH SOLN 5 ML BOTTLE BOTH EYES SCH ×3 (09:00→20:30)
[2022-06-03] MEDS: MULTIVITAMIN (CENTRUM) TABLET PO SCH (09:12)
[2022-06-03] MEDS: PANTOPRAZOLE 40 MG TABLET PO SCH (09:12)
[2022-06-03] MEDS: FOLIC ACID 1 MG TABLET PO SCH (09:12)
[2022-06-03] MEDS ORDERED: ALBUTEROL 2.5 MG/3 ML NEB RESP TX PRN (10:27)
[2022-06-03] MEDS: THIAMINE 100 MG TABLET PO SCH ×2 (13:28→20:30)
[2022-06-03] MEDS: MELOXICAM 7.5 MG TABLET PO SCH (18:20)
[2022-06-03] MEDS: METOPROLOL TARTRATE 50 MG TABLET PO SCH (20:30)
[2022-06-03] MEDS: ENOXAPARIN 40 MG/0.4 ML SYRINGE SUBCUT SCH (20:30)
[2022-06-03] MEDS ORDERED: DONEPEZIL 10 MG TABLET PO SCH (21:00)
[2022-06-03] MEDS ORDERED: LATANOPROST 0.005% OPH SOLN 2.5 ML BOTTLE BOTH EYES SCH (21:00)
[2022-06-03] MEDS ORDERED: ATORVASTATIN 40 MG TABLET PO SCH (21:00)
[2022-06-04] MEDS: DEXTROSE 10% 250 ML IV SCH ×2 (02:08→05:19)
[2022-06-04 06:02] LABS: Calcium 8.4 MG/DL (8.5-10.1); Osmolality,Calculated 281.3 MOS/KG (273-304); Potassium 3.5 MMOL/L (3.5-5.1)
[2022-06-04] MEDS ORDERED: ASPIRIN EC 81 MG TABLET PO SCH (09:00)
[2022-06-04] MEDS ORDERED: DOXAZOSIN 1 MG TABLET PO SCH (09:00)
[2022-06-04] MEDS ORDERED: BRIMONIDINE 0.15% OPH SOLN 1 DROP/DROPS BOTTLE BOTH EYES SCH (09:00)
[2022-06-04] MEDS: METOPROLOL TARTRATE 50 MG TABLET PO SCH (09:05)
[2022-06-04] MEDS: MULTIVITAMIN (CENTRUM) TABLET PO SCH (09:05)
[2022-06-04] MEDS: THIAMINE 100 MG TABLET PO SCH (09:05)
[2022-06-04] MEDS: PANTOPRAZOLE 40 MG TABLET PO SCH (09:06)
[2022-06-04] MEDS: FOLIC ACID 1 MG TABLET PO SCH (09:07)
[2022-06-04] MEDS: BRIMONIDINE 0.1% OPH SOLN 5 ML BOTTLE BOTH EYES SCH (09:07)
[2022-06-04] MEDS: MELOXICAM 7.5 MG TABLET PO SCH (09:10)
[2022-06-04 12:39] VITALS: BP 100/67
[2022-06-04] MEDS ORDERED: MAGNESIUM SULF RIDER 2 GM in PREMIX 1 EACH IV ONE (13:00)
== END 2022-06-04 15:05 | disposition home health service (06) ==
LOC: EDUNIT# → EDBD → N.ED 01:54 → N.EDINP 01:54 → SUATTDRO 07:48 → N.2W 13:27
PROVIDERS: ADMIT Internal Medicine; ATTEND Internal Medicine